=== PATIENT | female | born 1955 | race Caucasian/White ===

== ENCOUNTER 2016-12-12 08:57 | Emergency (ER) | payer OTHER ==
[~2016-12-12] VITALS: Ht 162.6 cm; Wt 78.9 kg
[~2016-12-12 08:57] MED LIST: ALBU8.5H5 IH; ASPI81TA3 PO; ATOR10TA65 PO; BEN50 PO; DOXY100T20 PO; ESOM20CA PO; Hydrocodone Bit/Acetaminophen PO; INSU100I13 SQ; LANT3I SC; LEVO750T8 PO; METF500T4 PO; PARO20TA58 PO; UDROBDM PO
[2016-12-12 08:59] VITALS: Ht 162.6 cm; Wt 78.9 kg
--- NOTE | 2016-12-12 10:25 | ERD ---
ER Documentation Chief Complaint Date/Time DATE: 12/12/16 TIME: 10:23 Chief Complaint cough x 10 days HPI Patient is a 61-year-old female with a past medical history of diabetes here with who presents to the ED with cough 5 days. She states that she has had a productive cough, runny nose, body aches and a sore throat. She denies abdominal pain, nausea, vomiting, diarrhea or constipation. She denies chest pain, shortness of breath or difficulty breathing. She states that she went to her primary care 2 days ago and is currently on azithromycin, day 11/23. She states it is her last day of medication. Denies headache, dizziness, neck pain or stiffness. Denies polyuria, polyphagia, polydipsia. ROS All systems reviewed and are negative except as per history of present illness. Medications Home Meds Active Scripts Amoxicillin/Potassium Clav (Amox-Clav 875-125 mg Tablet) 875-125 mg Tab, 1 TAB PO BID for 7 Days, #14 TAB Prov:BRI SHEPARD PA-C 12/12/16 Diphenhydramine Hcl* (Benadryl*) 50 Mg Cap, 50 MG PO Q6H Y for rash, #30 CAP Prov:MISAEL BERNAL. DATA MODELER 03/18/15 Albuterol Sulfate* (Albuterol Sulfate* HFA) 8.5 Gm Hfa.aer.ad, 2 PUFF IH Q6, #1 VIAL use every 6hours for 3 days and then as needed every 4 hours Prov:SLIM ORTIZ. 03/12/15 Levofloxacin* (Levofloxacin*) 750 Mg Tablet, 750 MG PO DAILY for 10 Days, TAB Prov:SLIM ORTIZ M. 03/12/15 Doxycycline Hyclate* (Doxycycline Hyclate*) 100 Mg Tablet.dr, 100 MG PO BID for 10 Days, TAB Prov:SLIM ORTIZ. 03/12/15 Paroxetine Hcl* (Paxil*) 20 Mg Tab, 20 MG PO DAILY for 30 Days Prov:SLIM ORTIZ M. 03/12/15 [Hydrocodone Bit/Acetaminophen] 1 TAB TAB No Conflict Check, 1 TAB PO Q6H Y for pain, #21 TAB Prov:SLIM ORTIZ. 03/12/15 Guaifenesin-Dextromethorphan* (Robitussin* DM) 5 Ml Syrup, 5 ML PO Q4H Y for COUGH, #100 ML Prov:SLIM ORTIZ. 03/12/15 Atorvastatin Calcium (Atorvastatin Calcium) 10 Mg Tab, 10 MG PO DAILY@21 for 30 Days, TAB Prov:SLIM ORTIZ. 03/12/15 Reported Medications Esomeprazole Mag Trihydrate (Nexium) 20 Mg Capsule.dr, 20 MG PO DAILY, CAP 03/07/15 Insulin Glargine* (Lantus*) 100 Unit/Ml Soln, 50 UNIT SC HS, EA 04/11/14 Aspirin* (Aspirin* Chew) 81 Mg Tab.chew, 81 MG PO once a week 01/19/13 Insulin Aspart (Novolog) 100 U/Ml Insuln.pen, 0 SQ Y 01/19/13 Metformin* (Glucophage*) 500 Mg Tab, 1000 MG PO BID 01/19/13 Allergies Allergies: Coded Allergies: levofloxacin (Verified Allergy, Mild, rash, 12/12/16) No Known Drug Allergies (Verified Allergy, Unknown, 04/11/14) doxycycline (Verified Allergy, Unknown, 12/12/16) PMhx/Soc History of Surgery: Yes (RIGHT SHOULDER SX 15 yrs ago) Anesthesia Reaction: No Hx Neurological Disorder: No Hx Respiratory Disorders: Yes (ASTHMA, pneumonia) Hx Cardiac Disorders: No Hx Psychiatric Problems: No (DEPRESSION) Hx Miscellaneous Medical Probl: Yes (DM) Hx Alcohol Use: No Hx Substance Use: No Hx Tobacco Use: No Smoking Status: Never smoker Physical Exam Vitals Vital Signs Date Time Temp Pulse Resp B/P Pulse Ox O2 Delivery O2 Flow Rate FiO2 12/12/16 08:59 98.1 90 20 132/61 98 Physical Exam GENERAL: Well-developed, well-nourished female. Appears in mild distress. HEAD: Normocephalic, atraumatic. EYES: Pupils are equally reactive bilaterally. EOMs grossly intact. No conjunctival erythema. ENT: Moist mucous membranes. No uvula deviation. No kissing tonsils. No exudates. NECK: Supple. No lymphadenopathy or thyromegaly. No meningismus. negative kernig. negative brudinski. LUNG: Clear to auscultation bilaterally. No rhonchi, wheezing, rales or coarse breath sounds. HEART: Regular rate and rhythm. No murmurs, rubs or gallops. ABDOMEN: No scars, ecchymosis or rashes noted. Soft, nontender, and nondistended. Positive bowel sounds in all four quadrants. No rebound tenderness , no guarding. (-) McBurneys point tenderness. No CVA tenderness. BACK: No midline tenderness. Extremities: Equal pulses bilaterally. No peripheral clubbing, cyanosis or edema. No unilateral leg swelling. NEUROLOGIC: Alert and oriented. Moving all four extremities. 5/5 strength in all extremities. Normal speech. Steady gait. SKIN: Normal color. Warm and dry. No rashes or lesions. Capillary refill < 2 seconds Results 24 hrs Current Medications Medications (Trade) Dose Ordered Sig/Jyoti Route PRN Reason Start Time Stop Time Status Last Admin Dose Admin Ceftriaxone Sodium (Rocephin) 1 gm ONCE ONCE IM 12/12/16 11:00 12/12/16 11:01 DC 12/12/16 11:13 Lidocaine (Xylocaine 1% (Mdv) 20 ml) 20 ml ONCE ONCE IM 12/12/16 11:00 12/12/16 11:01 DC 12/12/16 11:13 Procedures/MDM ER COURSE: I kept the patient and/or family informed of laboratory and diagnostic imaging results throughout the emergency room course. IMAGING STUDIES [place] [address] Radiology Main Line: [phone] DIAGNOSTIC IMAGING REPORT Patient: TAYLOR LEMON : 1955 Age: 61 Sex: F MR #: [id number] DOS: 12/12/16 1006 Ordering MD: BRI SHEPARD PA-C Location: [facility] Room/Bed: PROCEDURE: XR Chest 1 View. CLINICAL INDICATION: Cough TECHNIQUE: AP view of the chest was obtained. COMPARISON: None. FINDINGS: The cardiomediastinal silhouette is within normal limits. Patchy right upper lobe infiltrates are identified. The osseous structures are osteopenic, but appear grossly intact. Degenerative changes are seen in the shoulders. IMPRESSION: Patchy right upper lobe infiltrates. RPTAT: AA .Mich Maguire MD, MD Date Time Electronically viewed and signed by .Mich Maguire MD, MD on 12/12/2016 10:39 .P/ CC: BRI SHEPARD PA-C MEDICATIONS rocephin + lidocaine. tolerated well with no adverse reaction. MEDICAL DECISION MAKING: This is a 61 year old female who presents with cough, runny nose, congestion x 10 days. Vital signs were reviewed. Patient is afebrile. Patient is not hypoxic. X-rays read by radiologist shows patchy right upper lobe infiltrates. I have consulted with Dr. Pizano and since patient is allergic to Levaquin, doxycycline and is currently finishing her azithromycin, patient will be sent home with Augmentin and given Rocephin shot here in the ED. Patient's vitals are stable and patient does not need to be admitted. Dr. Pizano agrees with plan of outpatient therapy. Patient to follow-up with her primary care regarding this. Low suspicion for , PE, pneumothorax, ACS, epiglottitis, obstruction, TB, pertussis, meningitis, sepsis. DISCHARGE: At this time, patient is stable for discharge and outpatient management with no new complaints during the ER course. Patient was sent home with augmentin and to follow up with PCP. CD and copy of report was given to patient. Patient understood and agrees with plan and will follow up with PCP this week. Patient will be discharged home with instructions to recheck for new or worsening symptoms such as fever, nausea, weakness, LOC and to follow up with primary care in the next 1-2 days. Patient was advised to return to the ER for any new or worsening symptoms. Plan was discussed and patient and/or family understands and agrees. Home instructions were given. Departure Diagnosis: Primary Impression: Pneumonia Pneumonia type: due to unspecified organism Laterality: right Lung location : upper lobe of lung Qualified Code: J18.9 - Pneumonia of right upper lobe due to infectious organism Condition: Stable BRI SHEPARD PA-C Dec 12, 2016 10:25
--- NOTE | 2016-12-12 10:39 | RADRPT ---
PROCEDURE: XR Chest 1 View. CLINICAL INDICATION: Cough TECHNIQUE: AP view of the chest was obtained. COMPARISON: None. FINDINGS: The cardiomediastinal silhouette is within normal limits. Patchy right upper lobe infiltrates are id entified. The osseous structures are osteopenic, but appear grossly intact. Degenerative changes ar e seen in the shoulders. IMPRESSION: Patchy right upper lobe infiltrates. RPTAT: AA .Mcih Maguire MD, MD Date Time Electronically viewed and signed by .Mich Maguire MD, on 12/12/2016 10:39 .P/
[2016-12-12] MEDS ORDERED: CEFTRIAXONE 1 GM INJ IM ONE (11:00)
[2016-12-12] MEDS ORDERED: LIDOCAINE 1% (MDV) 20 ML INJ IM ONE (11:00)
[2016-12-12] MEDS ORDERED: AMOX1TAB10 PO (11:26)
== END 2016-12-12 11:51 | disposition home or self-care (01) ==
LOC: FTE 08:57
DX: J18.9 Pneumonia, unspecified organism (principal); J45.909 Unspecified asthma, uncomplicated; E11.9 Type 2 diabetes mellitus without complications; Z79.4 Long term (current) use of insulin; Z79.82 Long term (current) use of aspirin; Z79.84 Long term (current) use of oral hypoglycemic drugs
CPT/HCPCS: 71010; 96372; J0696; Z7502; Z7610

== ENCOUNTER 2017-07-07 04:56 | Emergency (ER) | payer OTHER ==
[~2017-07-07] VITALS: Ht 160 cm; Wt 81.5 kg
[~2017-07-07 04:56] MED LIST changes: +AMOX1TAB10 PO
[2017-07-07 04:58] VITALS: Ht 160 cm; Wt 81.5 kg
[2017-07-07] MEDS ORDERED: CEPH-443 PO (05:14)
[2017-07-07] MEDS ORDERED: BEN50 PO (05:14)
--- NOTE | 2017-07-07 05:21 | ERD ---
ER Documentation Chief Complaint Date/Time DATE: 07/07/17 TIME: 05:17 Chief Complaint swelling of right hand, itchy HPI 8-year-old female complaining of swelling and pruritic sensation to right hand 2 days. Patient states she believes she was bit by something but does not know what. She has been using Benadryl cream on site with relief however has continued itching sensation. Denies fever. Patient is concerned because she has diabetic. Denies any other medical problems. Allergy to doxycycline and levofloxacin. ROS All systems reviewed and are negative except as per history of present illness. Medications Home Meds Active Scripts Diphenhydramine Hcl* (Benadryl*) 50 Mg Cap, 50 MG PO Q6 Y for itch, #30 CAP Prov:NICOLE VENTURA PA-C 07/07/17 Cephalexin* (Keflex*) 500 Mg Capsule, 500 MG PO QID for 7 Days, CAP Prov:NICOLE VENTURA PA-C 07/07/17 Amoxicillin/Potassium Clav (Amox-Clav 875-125 mg Tablet) 875-125 mg Tab, 1 TAB PO BID for 7 Days, #14 TAB Prov:BRI SHEPARD PA-C 12/12/16 Diphenhydramine Hcl* (Benadryl*) 50 Mg Cap, 50 MG PO Q6H Y for rash, #30 CAP Prov:MISAEL BERNAL NP 03/18/15 Albuterol Sulfate* (Albuterol Sulfate* HFA) 8.5 Gm Hfa.aer.ad, 2 PUFF IH Q6, #1 VIAL use every 6hours for 3 days and then as needed every 4 hours Prov:SLIM ORTIZ 03/12/15 Levofloxacin* (Levofloxacin*) 750 Mg Tablet, 750 MG PO DAILY for 10 Days, TAB Prov:SLIM ORTIZ 03/12/15 Doxycycline Hyclate* (Doxycycline Hyclate*) 100 Mg Tablet.dr, 100 MG PO BID for 10 Days, TAB Prov:SLIM ORTIZ 03/12/15 Paroxetine Hcl* (Paxil*) 20 Mg Tab, 20 MG PO DAILY for 30 Days Prov:SLIM ORTIZ 03/12/15 [Hydrocodone Bit/Acetaminophen] 1 TAB TAB No Conflict Check, 1 TAB PO Q6H Y for pain, #21 TAB Prov:SLIM ORTIZ. 03/12/15 Guaifenesin-Dextromethorphan* (Robitussin* DM) 5 Ml Syrup, 5 ML PO Q4H Y for COUGH, #100 ML Prov:SLIM ORTIZ. 03/12/15 Atorvastatin Calcium (Atorvastatin Calcium) 10 Mg Tab, 10 MG PO DAILY@21 for 30 Days, TAB Prov:SLIM ORTIZ. 03/12/15 Reported Medications Esomeprazole Mag Trihydrate (Nexium) 20 Mg Capsule.dr, 20 MG PO DAILY, CAP 03/07/15 Insulin Glargine* (Lantus*) 100 Unit/Ml Soln, 50 UNIT SC HS, EA 04/11/14 Aspirin* (Aspirin* Chew) 81 Mg Tab.chew, 81 MG PO once a week 01/19/13 Insulin Aspart (Novolog) 100 U/Ml Insuln.pen, 0 SQ Y 01/19/13 Metformin* (Glucophage*) 500 Mg Tab, 1000 MG PO BID 01/19/13 Allergies Allergies: Coded Allergies: levofloxacin (Verified Allergy, Mild, rash, 12/12/16) No Known Drug Allergies (Verified Allergy, Unknown, 04/11/14) doxycycline (Verified Allergy, Unknown, 12/12/16) PMhx/Soc History of Surgery: Yes (RIGHT SHOULDER SX 15 yrs ago) Anesthesia Reaction: No Hx Neurological Disorder: No Hx Respiratory Disorders: Yes (ASTHMA, pneumonia) Hx Cardiac Disorders: No Hx Psychiatric Problems: No (DEPRESSION) Hx Miscellaneous Medical Probl: Yes (DM) Hx Alcohol Use: No Hx Substance Use: No Hx Tobacco Use: No Smoking Status: Never smoker Physical Exam Vitals Vital Signs Date Time Temp Pulse Resp B/P Pulse Ox O2 Delivery O2 Flow Rate FiO2 07/07/17 04:58 97.3 86 20 144/72 98 Physical Exam GENERAL: The patient is well-appearing, well-nourished, in no acute distress CHEST: Clear to auscultation bilaterally. There are no rales, wheezes or rhonchi. HEART: Regular rate and rhythm. No murmurs, clicks, rubs or gallops. No S3 or S4. EXTREMITIES: Equal pulses bilaterally. There is no peripheral clubbing, cyanosis or edema. No focal swelling or erythema. Full range of motion. Grossly neurovascularly intact. SKIN: Erythema and swelling to the right hand. No lymphatic streaking. No induration. Small site of possible bug bite. Results 24 hrs Current Medications Medications (Trade) Dose Ordered Sig/Jyoti Route PRN Reason Start Time Stop Time Status Last Admin Dose Admin Diphenhydramine HCl (Benadryl) 50 mg ONCE ONCE PO 07/07/17 05:30 07/07/17 05:31 Procedures/MDM ER course: Patient is given Benadryl in the ED. MDM: 62-year-old female complaining of swelling to the right hand. I believe patient sustained a bug bite of unknown origin. Site does not appear to be infected however I will treat with antibiotics as patient is diabetic. I have low suspicion for deep abscess or lymphatic infection. Patient is discharged with strict ER precautions and recommended to return to the ER symptoms change or worsen. She is recommended to follow-up with primary care within 1-2 days for close evaluation. All questions answered at discharge. Departure Diagnosis: Primary Impression: Bug bite Condition: Stable Patient Instructions: Insect Bite Referrals: [facility] YOU HAVE RECEIVED A MEDICAL SCREENING EXAM AND THE RESULTS INDICATE THAT YOU DO NOT HAVE A CONDITION THAT REQUIRES URGENT TREATMENT IN THE EMERGENCY DEPARTMENT. FURTHER EVALUATION AND TREATMENT OF YOUR CONDITION CAN WAIT UNTIL YOU ARE SEEN IN YOUR DOCTORS OFFICE WITHIN THE NEXT 1-2 DAYS. IT IS YOUR RESPONSIBILITY TO MAKE AN APPOINTMENT FOR FOLOW-UP CARE. IF YOU HAVE A PRIMARY DOCTOR --you should call your primary doctor and schedule an appointment IF YOU DO NOT HAVE A PRIMARY DOCTOR YOU CAN CALL OUR PHYSICIAN REFERRAL HOTLINE AT IF YOU CAN NOT AFFORD TO SEE A PHYSICIAN YOU CAN CHOSE FROM THE FOLLOWING [facility] [address] [facility] [facility]. [facility] [address] [facility] [facility] [address] [facility] [facility] [address] [facility]. [facility] [address] [facility]. [facility]. [address] Additional Instructions: FOLLOW UP WITH YOUR PRIMARY CARE PHYSICIAN TOMORROW.Return to this facility if you are not improving as expected. NICOEL VENTURA PA-C Jul 07, 2017 05:21
[2017-07-07] MEDS ORDERED: DIPHENHYDRAMINE 50 MG CAP PO ONE (05:30)
== END 2017-07-07 05:49 | disposition home or self-care (01) ==
LOC: FTE 04:56
DX: S60.561A Insect bite (nonvenomous) of right hand, initial encounter (principal); E11.9 Type 2 diabetes mellitus without complications; J45.909 Unspecified asthma, uncomplicated; W57.XXXA Bitten or stung by nonvenomous insect and other nonvenomous arthropods, initial encounter; Y92.9 Unspecified place or not applicable; Z79.4 Long term (current) use of insulin; Z79.82 Long term (current) use of aspirin; Z79.84 Long term (current) use of oral hypoglycemic drugs
CPT/HCPCS: Z7502; Z7610; 99283

== ENCOUNTER 2018-01-24 01:28 | Inpatient (IN) | END 2018-01-27 13:49 | disposition home or self-care (01) | DRG 871 ==

== ENCOUNTER 2019-04-21 14:10 | Emergency (ER) | payer OTHER ==
[~2019-04-21] VITALS: Ht 165.1 cm; Wt 73.6 kg
[~2019-04-21 14:10] MED LIST changes: +ACET325T33 PO; +ADV25050 INH; -AMOX1TAB10 PO; +ASPI-903 PO; -ASPI81TA3 PO; +AZIT500T5 PO; -BEN50 PO; -DOXY100T20 PO; +GUAI5SYR2 PO; -Hydrocodone Bit/Acetaminophen PO; -LEVO750T8 PO; +METF-849 PO; -METF500T4 PO; +PARO-2 PO; -PARO20TA58 PO; -UDROBDM PO
[2019-04-21 14:16] VITALS: Ht 165.1 cm; Wt 73.6 kg
[2019-04-21 15:41] VITALS: BP 138/78; PULSE 76; RESP 20
--- NOTE | 2019-04-21 15:43 | ERD ---
ER Documentation Chief Complaint Chief Complaint slip in shower, laceration back of head, bleeding control, denies KO HPI 64-year-old female complaining of a laceration to the back of her head after she slipped in the shower a few minutes ago. There is no loss of consciousness and she is acting normal per her . No episodes of vomiting. Denies other medical problems. NKDA. Surgical history denies. Social history denies ROS All systems reviewed and are negative except as per history of present illness. Medications Home Meds Active Scripts Acetaminophen* (Tylenol*) 325 Mg Tablet, 2 TAB PO Q6 PRN for PAIN AND OR ELEVATED TEMP, #20 TAB Prov:NICOLE VENTURA PA-C 04/21/19 Azithromycin* (Azithromycin*) 500 Mg Tablet, 500 MG PO DAILY for 5 Days, #5 TAB Prov:YAMEL KITCHEN V. PICKLE PUMPER 01/27/18 Salmeterol Xinaf/Fluticasone* (Advair*) 250-50 Diskus Inhaler, 1 INH INH BID, #1 INHALER Prov:YAMEL KITCHEN NP 01/27/18 Guaifenesin-Dextromethorphan* (Robitussin* DM) 5 Ml Syrup, 10 ML PO Q4H PRN for COUGH, #100 ML Prov:YAMEL KITCHEN NP 01/27/18 Albuterol Sulfate* (Albuterol Sulfate* HFA) 8.5 Gm Hfa.aer.ad, 2 PUFF IH Q6, #1 VIAL use every 6hours for 3 days and then as needed every 4 hours Prov:SLIM ORTIZ 03/12/15 Paroxetine Hcl* (Paxil*) 20 Mg Tab, 20 MG PO DAILY for 30 Days Prov:SLIM ORTIZ 03/12/15 Atorvastatin Calcium (Atorvastatin Calcium) 10 Mg Tab, 10 MG PO DAILY@21 for 30 Days, TAB Prov:SLIM ORTIZ 03/12/15 Reported Medications Esomeprazole Mag Trihydrate (Nexium) 20 Mg Capsule.dr, 20 MG PO DAILY, CAP 03/07/15 Insulin Glargine* (Lantus*) 100 Unit/Ml Soln, 50 UNIT SC HS, EA 04/11/14 Aspirin* (Aspirin* Chew) 81 Mg Tab.chew, 81 MG PO once a week 01/19/13 Insulin Aspart (Novolog) 100 U/Ml Insuln.pen, 0 SQ PRN 01/19/13 Metformin* (Glucophage*) 500 Mg Tab, 1000 MG PO BID 01/19/13 Allergies Allergies: Coded Allergies: levofloxacin (Verified Allergy, Mild, rash, 01/27/18) doxycycline (Verified Allergy, Unknown, 01/27/18) PMhx/Soc History of Surgery: Yes (R shoulder Sx) Anesthesia Reaction: No Hx Neurological Disorder: No Hx Respiratory Disorders: Yes (PNA) Hx Cardiac Disorders: No Hx Psychiatric Problems: No Hx Miscellaneous Medical Probl: No Hx Alcohol Use: No Hx Substance Use: No Hx Tobacco Use: No Smoking Status: Never smoker FmHx Family History: No diabetes, No coronary disease, No other Physical Exam Vitals Vital Signs Date Temp Pulse Resp B/P (MAP) Pulse Ox O2 O2 Flow FiO2 Time Delivery Rate 04/21/19 98.7 89 20 183/81 98 14:16 (115) Physical Exam GENERAL: The patient is well-appearing, well-nourished, in no acute distress HEENT: Atraumatic. Conjunctivae are pink. Pupils equal, round, and reactive to light. There is no scleral icterus. Tympanic membranes clear bilaterally. Oropharynx clear. CHEST: Clear to auscultation bilaterally. There are no rales, wheezes or rhonchi. HEART: Regular rate and rhythm. No murmurs, clicks, rubs or gallops. EXTREMITIES: Equal pulses bilaterally. There is no peripheral clubbing, cyanosis or edema. No focal swelling or erythema. Full range of motion. Grossly neurovascularly intact. NEUROLOGIC: Alert and oriented. Cranial nerves II through XII intact. Motor strength in all 4 extremities with 5 out of 5 strength. Sensation grossly intact. SKIN: 1 cm linear laceration noted occipital region of the scalp lying in a horizontal position. No active bleeding. Procedures/MDM DIAGNOSTIC IMAGING REPORT Patient: TAYLOR LEMON : 1955 Age: 64 Sex: F MR #: [id number] DOS: 04/21/19 1434 Ordering MD: GURDEEP VENTURA PA-C Location: [facility]TE Room/Bed: PROCEDURE: CT Brain without contrast. CLINICAL INDICATION: Headaches status post trauma and head injury TECHNIQUE: A CT of the brain was performed on a GE O2 [employer] CT scanner utilizing axial imaging from the skull base through the vertex without IV contrast. Multiplanar reformatted images were made. Images were reviewed on a PACS workstation. The CTDIvol is 39.64 mGy and the DLP is 634.23 mGycm. DICOM images are available. One of the following 3 dose reduction techniques were used during this CT examination: 1) Automated exposure control 2) Adjustment of the mA +/- kV according to patient size or 3) Use of iterative reconstruction technique COMPARISON: None available FINDINGS: There is no intracranial hemorrhage, mass effect, or midline shift. No extra- axial fluid collection is seen. The ventricles and sulci are age appropriate. Mild diffuse volume loss is present. Subtle decreased attenuation is noted in the bilateral subcortical white matter, centrum semiovale and periventricular white matter compatible with mild chronic microvascular ischemic disease. Mild vascular calcifications are present of the intracranial internal carotid arteries. The visualized scalp and calvarium are normal. The bilateral orbits are normal. The bilateral paranasal sinuses demonstrate small air-fluid levels in the bilateral maxillary sinuses. IMPRESSION: 1. No evidence of acute intracranial hemorrhage, infarcts, or acute intracranial pathology. 2. Mild chronic microvascular ischemic disease and diffuse volume loss 3. Acute small bilateral maxillary sinus air fluid level ER Course: Normal saline used to clean the wound site. 2 pete placed without complication. Edges well approximated. MDM: 64-year-old female presenting with head laceration. Patient's neuro exam is within normal limits and intracranial CT scan is within normal limits. I have low suspicion for neuro deficit. Patient is discharged with strict ER precautions and told to follow-up with primary care within 1 to 2 days for close evaluation. Patient is recommended to have pete removed within 7 days. Patient is told symptoms change or worsen to return immediately to the ER. She is discharged with strict head precautions. All questions answered at discharge Departure Diagnosis: Primary Impression: Head injury Condition: Stable Patient Instructions: HEAD INJURY, No Wake-Up (Adult), Laceration, Scalp Referrals: [facility] YOU HAVE RECEIVED A MEDICAL SCREENING EXAM AND THE RESULTS INDICATE THAT YOU DO NOT HAVE A CONDITION THAT REQUIRES URGENT TREATMENT IN THE EMERGENCY DEPARTMENT. FURTHER EVALUATION AND TREATMENT OF YOUR CONDITION CAN WAIT UNTIL YOU ARE SEEN IN YOUR DOCTORS OFFICE WITHIN THE NEXT 1-2 DAYS. IT IS YOUR RESPONSIBILITY TO MAKE AN APPOINTMENT FOR FOLOW-UP CARE. IF YOU HAVE A PRIMARY DOCTOR --you should call your primary doctor and schedule an appointment IF YOU DO NOT HAVE A PRIMARY DOCTOR YOU CAN CALL OUR PHYSICIAN REFERRAL HOTLINE AT IF YOU CAN NOT AFFORD TO SEE A PHYSICIAN YOU CAN CHOSE FROM THE FOLLOWING [facility] [address] [facility] [address] [facility] [address] [facility] [address] [facility] [address] [facility]. [facility]. [address] Additional Instructions: FOLLOW UP WITH YOUR PRIMARY CARE PHYSICIAN TOMORROW.Return to this facility if you are not improving as expected. NICOLE VENTURA PA-C Apr 21, 2019 15:42
== END 2019-04-21 15:40 | disposition home or self-care (01) ==
LOC: FTE 14:10
DX: S01.81XA Laceration without foreign body of other part of head, initial encounter (principal); R51 Headache; E11.9 Type 2 diabetes mellitus without complications; W18.49XA Other slipping, tripping and stumbling without falling, initial encounter; Y92.89 Other specified places as the place of occurrence of the external cause; Z79.4 Long term (current) use of insulin; Z79.82 Long term (current) use of aspirin
CPT/HCPCS: 70450; Z7502; Z7610

== ENCOUNTER 2019-04-30 09:48 | Emergency (ER) | payer OTHER ==
[~2019-04-30] VITALS: Ht 160 cm; Wt 71.0 kg
[2019-04-30 09:50] VITALS: BP 167/78; PULSE 94; RESP 18; Ht 160 cm; Wt 71.0 kg
--- NOTE | 2019-04-30 10:48 | ERD ---
ER Documentation Chief Complaint Chief Complaint STAPLE REMOVAL FROM BACK OF HEAD PLACED IN 8 DAYS AGO HPI 64-year-old female presenting for a removal of the staple to the back of her head. 1 week ago patient fell in shower and had 2 pete placed to the occipital lobe. She denies any headaches or vomiting. Denies any dizziness. Denies other medical problems. NKDA. Surgical history denies. Social history denies ROS All systems reviewed and are negative except as per history of present illness. Medications Home Meds Active Scripts Acetaminophen* (Tylenol*) 325 Mg Tablet, 2 TAB PO Q6 PRN for PAIN AND OR ELEVATED TEMP, #20 TAB Prov:NICOLE VENTURA PA-C 04/21/19 Azithromycin* (Azithromycin*) 500 Mg Tablet, 500 MG PO DAILY for 5 Days, #5 TAB Prov:YAMEL KITCHEN NP 01/27/18 Salmeterol Xinaf/Fluticasone* (Advair*) 250-50 Diskus Inhaler, 1 INH INH BID, #1 INHALER Prov:YAMEL KITCHEN NP 01/27/18 Guaifenesin-Dextromethorphan* (Robitussin* DM) 5 Ml Syrup, 10 ML PO Q4H PRN for COUGH, #100 ML Prov:YAMEL KITCHEN NP 01/27/18 Albuterol Sulfate* (Albuterol Sulfate* HFA) 8.5 Gm Hfa.aer.ad, 2 PUFF IH Q6, #1 VIAL use every 6hours for 3 days and then as needed every 4 hours Prov:SLIM ORTIZ 03/12/15 Paroxetine Hcl* (Paxil*) 20 Mg Tab, 20 MG PO DAILY for 30 Days Prov:SLIM ORTIZ 03/12/15 Atorvastatin Calcium (Atorvastatin Calcium) 10 Mg Tab, 10 MG PO DAILY@21 for 30 Days, TAB Prov:SLIM ORTIZ 03/12/15 Reported Medications Esomeprazole Mag Trihydrate (Nexium) 20 Mg Capsule.dr, 20 MG PO DAILY, CAP 03/07/15 Insulin Glargine* (Lantus*) 100 Unit/Ml Soln, 50 UNIT SC HS, EA 04/11/14 Aspirin* (Aspirin* Chew) 81 Mg Tab.chew, 81 MG PO once a week 01/19/13 Insulin Aspart (Novolog) 100 U/Ml Insuln.pen, 0 SQ PRN 01/19/13 Metformin* (Glucophage*) 500 Mg Tab, 1000 MG PO BID 01/19/13 Allergies Allergies: Coded Allergies: levofloxacin (Verified Allergy, Mild, rash, 01/27/18) doxycycline (Verified Allergy, Unknown, 01/27/18) PMhx/Soc History of Surgery: Yes (R shoulder Sx) Anesthesia Reaction: No Hx Neurological Disorder: No Hx Respiratory Disorders: Yes (PNA) Hx Cardiac Disorders: No Hx Psychiatric Problems: No Hx Miscellaneous Medical Probl: No Hx Alcohol Use: No Hx Substance Use: No Hx Tobacco Use: No Smoking Status: Never smoker FmHx Family History: No diabetes, No coronary disease, No other Physical Exam Vitals Vital Signs Date Temp Pulse Resp B/P (MAP) Pulse Ox O2 O2 Flow FiO2 Time Delivery Rate 04/30/19 98.4 94 18 167/78 97 09:50 (107) Physical Exam GENERAL: The patient is well-appearing, well-nourished, in no acute distress HEENT: Atraumatic. Conjunctivae are pink. Pupils equal, round, and reactive to light. There is no scleral icterus. Tympanic membranes clear bilaterally. Oropharynx clear. CHEST: Clear to auscultation bilaterally. There are no rales, wheezes or rhonchi. HEART: Regular rate and rhythm. No murmurs, clicks, rubs or gallops. SKIN: 2 sutures intact with no surrounding erythema or dehiscence. Wound healed well Procedures/MDM ER course: Mongo removed without complication. MDM: 64-year-old male presenting for staple removal. Patient is within normal limits with no findings of neuro deficits. I have low suspicion for intracranial hemorrhage or neuro deficit and I do not feel patient requires head CT. She is wound healed appropriately with no signs of infection. Patient is discharged with strict ER precautions and told to follow-up with primary care within 1 to 2 days for close evaluation. All questions answered at discharge Departure Diagnosis: Primary Impression: Encounter for removal of pete Condition: Stable Patient Instructions: Staple Removal, No Complication Referrals: [facility] YOU HAVE RECEIVED A MEDICAL SCREENING EXAM AND THE RESULTS INDICATE THAT YOU DO NOT HAVE A CONDITION THAT REQUIRES URGENT TREATMENT IN THE EMERGENCY DEPARTMENT. FURTHER EVALUATION AND TREATMENT OF YOUR CONDITION CAN WAIT UNTIL YOU ARE SEEN IN YOUR DOCTORS OFFICE WITHIN THE NEXT 1-2 DAYS. IT IS YOUR RESPONSIBILITY TO MAKE AN APPOINTMENT FOR FOLOW-UP CARE. IF YOU HAVE A PRIMARY DOCTOR --you should call your primary doctor and schedule an appointment IF YOU DO NOT HAVE A PRIMARY DOCTOR YOU CAN CALL OUR PHYSICIAN REFERRAL HOTLINE AT IF YOU CAN NOT AFFORD TO SEE A PHYSICIAN YOU CAN CHOSE FROM THE FOLLOWING [facility] [address] [facility] [address] [facility] [facility] [address] [facility] [address] [facility] [address] [facility] [facility]. [address] Additional Instructions: FOLLOW UP WITH YOUR PRIMARY CARE PHYSICIAN TOMORROW.Return to this facility if you are not improving as expected. NICOLE VENTURA PA-C Apr 30, 2019 10:48
== END 2019-04-30 10:34 | disposition home or self-care (01) ==
LOC: FTE 09:48
DX: Z48.02 Encounter for removal of sutures (principal); E11.9 Type 2 diabetes mellitus without complications; Z79.4 Long term (current) use of insulin; Z79.82 Long term (current) use of aspirin
CPT/HCPCS: 99281